=== PATIENT | female | born 1960 | race Caucasian/White ===

== ENCOUNTER 2020-01-17 08:01 | Emergency (ER) | payer MEDICAID ==
[~2020-01-17] VITALS: Ht 160 cm; Wt 87.1 kg
[2020-01-17 08:06] VITALS: BP 146/92
[2020-01-17] MEDS ORDERED: OMEPRAZOLE20 M2 PO (08:11)
[2020-01-17] MEDS ORDERED: LISINOPRIL20 MG PO (08:12)
[2020-01-17] MEDS ORDERED: REQUIP5 MG PO (08:12)
[2020-01-17] MEDS ORDERED: PERCOCET 7.5-31 EAC1 PO (08:13)
[2020-01-17] MEDS ORDERED: ANORO ELLIPTA1 EACH INH (08:13)
[2020-01-17] MEDS ORDERED: CORTISPORIN OTI10 M2 OTIC (08:20)
== END 2020-01-17 08:44 | disposition home or self-care (01) ==
LOC: M.ERS 08:01
DX: S00.412A Abrasion of left ear, initial encounter (principal); Z79.899 Other long term (current) drug therapy; X58.XXXA Exposure to other specified factors, initial encounter; Y93.89 Activity, other specified; Y92.89 Other specified places as the place of occurrence of the external cause; Y99.8 Other external cause status